=== PATIENT | male | born 1955 | race Caucasian/White ===

== ENCOUNTER → 2021-05-14 | Outpatient (CLI) | payer OTHER, MEDICARE ==
[~2021-05-14] MED LIST: ASA81BEC PO; DICLOFENAC SODI75 MG PO; METHADONE HCL5 MG PO; MULTI VITAMIN1 EACH PO; PERCOCET 7.5-31 EAC1 PO; PRINIVIL20 MG PO; PROAIR HFA8.5 GM INH
== END ==
LOC: LAB 05:38
PROVIDERS: ATTEND Student in an Organized Health Care Education/Training Program
DX: Z01.812 Encounter for preprocedural laboratory examination (principal); Z20.822 Contact with and (suspected) exposure to COVID-19

== ENCOUNTER → 2021-05-15 | Day surgery (SDC) | payer OTHER, MEDICARE ==
[~2021-05-15] VITALS: Ht 167.6 cm; Wt 58.1 kg
[2021-05-15 08:16] VITALS: BP 145/75
--- NOTE | 2021-05-15 08:22 | EKG ---
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: VENANCIO : 1955 Requested By: Baljeet Eugene Order Number: [id number] : Alex Avelar Measurements Intervals [place] Rate: 73 P: 57 IN: 152 QRS: -13 QRSD: 92 T: 39 QT: 387 QTc: 427 Interpretive Statements Sinus rhythm Abnormal R-wave progression, early transition No previous ECG available for comparison Electronically Signed On 05-15-2021 8:21:59 DICTIONARY EDITOR by Alex Avelar [email or web address] <ELECTRONICALLY SIGNED> By: Alex Avelar MD, [facility] 05/15/21 0821 [id number] Alex Avelar MD, FACC /EPI
[2021-05-15 11:13] VITALS: BP 145/75
--- NOTE | 2021-05-17 13:45 | O ---
[facility] [place] [address] OPERATIVE REPORT Name: KEVIN JIMENEZ Room #: REG [facility]#: [id number] Admission: 05/15/21 Attend Phys: Baljeet Eugene MD Discharge: Date of : 55 Report #: [id number] THIS REPORT FOR: cc: Barbara Cheema MD, Marjon MD Kneidel,Baljeet Holcomb MD ~ DATE OF SERVICE: 05/15/2021 PREOPERATIVE DIAGNOSIS: Right foot nonunion tibiotalar calcaneal arthrodesis. POSTOPERATIVE DIAGNOSIS: Right foot nonunion tibiotalar calcaneal arthrodesis. PROCEDURE: 1. Right ankle tibiotalar calcaneal arthrodesis nonunion takedown. 2. Right foot revision tibiotalar calcaneal arthrodesis. 3. Right leg bone graft procurement via the MAINTE[employer]NCE INSTRU[employer] system. SURGEON: Baljeet Eugene MD PATIENT SERVICE SPECIALIST: None. ANESTHESIA: General. ESTIMATED BLOOD LOSS: Minimal. DRAINS: No drains. TOURNIQUET TIME: 2 hours and 15 minutes. DESCRIPTION OF PROCEDURE: The patient was brought to the operating room where he was placed under general anesthesia. Once under adequate general anesthesia, his right lower extremity was prepped and draped in a sterile manner. The extremity was elevated, exsanguinated and a tourniquet placed to 300 mmHg. Utilizing fluoroscopy for guidance, incisions were made over the screw head and the tibiotalar calcaneal in the tibia for the tibiotalar calcaneal arthrodesis nail, which had been placed previously. The 2 screws in the tibia were removed. Similarly, the screws in the calcaneus were exposed posteriorly through a separate incision and the screws were then extracted. One of the screws was broken and was in the nail. Therefore, a plantar incision where the nail was protruding was made approximately 4 cm in length. This was dissected down to the end of the nail, which was then identified and the extraction tool from the Synthes set was placed into the nail. Subsequently, the surrounding soft tissue was freed from the arthrodesis nail and the broken screw, which was in the end of the nail and was removed distally through this incision using a slap hammer to remove the nail and the broken screw. Once these were removed, a separate incision laterally approximately 6 cm in length was made over the end of the [address] [address] OPERATIVE REPORT Name: KEVIN JIMENEZ [id number] Admission: 05/15/21 Attend Phys: Baljeet Eugene MD Discharge: Date of : 55 Report #: [id number] distal fibula extending down to the foot to expose the ankle joint. A rongeur was used to remove intervening soft tissue and bone fragments, which were limiting the healing of the previous arthrodesis. The bony surfaces were then debrided as well to get down to good bleeding bone and the remaining talar and distal tibial bone. Dissection was carried down to the medial malleolus. With retractors in place, a sagittal saw was used to resect the medial malleolus. Once these were resected, reduction of the valgus deformity through the ankle was able to be achieved. With the ankle held in a reduced position to allow alignment of the foot, the guidewire for the tibiotalar calcaneal fusion nail or TTC fusion nail was then placed for the Synthes TTC fusion nail. Reaming of the tibia with the MAINTENANCE INSTRUCTOR system was then used to procure bone graft from the tibia. This bone graft was then mixed with the medial malleolar bone and other bone fragments, which had been resected to free up the previous nonunion. These were set on the back table. Abundant bone graft was achieved. We did ream up to a size 14 for a size 13 nail. The size 13 nail was then placed and turned 180 degrees to assist in reducing the alignment of the ankle and foot. Once in place, excellent alignment was achieved. Fixation was then achieved posteriorly through the previous incision where the screws came out to place two new posterior to anterior screws through the calcaneus and into the nail. Excellent fixation distally was achieved. Compression across the joint was achieved and fixation proximally through the medial cortex of the tibia was achieved with two transverse locking screws placed under fluoroscopic guidance. Excellent fixation and alignment was achieved once complete. The wounds were then irrigated. The bone graft including a structural bone from the medial malleolus and the slurry of bone from the MAINTENANCE INSTRUCTOR system was then placed into the lateral defect. This then did complete the fixation and alignment for the fusion of the TTC nail at the ankle. Once complete, the wounds were irrigated once again copiously and closed in the deep fascia with 0 Vicryl, 2-0 Vicryl was used in the subcutaneous tissues and 2-0 nylon as well as cliff were used for the skin. The wounds were dressed with Xeroform, 4 x 4's, and a sterile soft compressive dressing with a short leg cast was placed. Tourniquet was let down at approximately 2 hours and 15 minutes. Toes were pink and warm. Good capillary refill. There were no complications from the procedure. The patient tolerated the procedure well and was to the recovery room without incident. <ELECTRONICALLY SIGNED> By: Baljeet Eugene MD 05/17/21 [id number] Baljeet Eugene MD /west
== END | disposition home or self-care (01) ==
LOC: OR 07:09
PROVIDERS: ATTEND Orthopaedic Surgery Foot and Ankle Surgery
DX: M96.0 Pseudarthrosis after fusion or arthrodesis (principal); I10 Essential (primary) hypertension; J43.9 Emphysema, unspecified; F32.9 Major depressive disorder, single episode, unspecified; Z98.890 Other specified postprocedural states; Z79.899 Other long term (current) drug therapy; Z96.652 Presence of left artificial knee joint; Z79.82 Long term (current) use of aspirin; Y83.8 Other surgical procedures as the cause of abnormal reaction of the patient, or of later complication, without mention of misadventure at the time of the procedure
CPT/HCPCS: 50010; 50101; 50133; 50386; 50635; 50951; 51412; 52121; 53341; 56524; 56525; 57091; 57180; 5743; 57485; 57860; 57862; 57863; 58391; 59164; 59165; 59166; 59167; 59168; 62110; 62900; 70005